=== PATIENT | male | born 1980 | race Caucasian/White ===

== ENCOUNTER 2021-07-16 20:47 | Emergency (ER) | payer BC ==
[2021-07-16] MEDS ORDERED: Sodium Chloride 0.9% 1,000 ML IV SCH (21:00)
[2021-07-16] MEDS ORDERED: Sodium Chloride 0.9% 10 ML Syringe FLUSH PRN (21:00)
[2021-07-16] MEDS ORDERED: Ondansetron 4 MG/2 ML SDV IVPUSH ONE (21:00)
[2021-07-16] MEDS ORDERED: HYDROmorphone 1 MG/ML Syringe IVPUSH ONE (21:01)
[2021-07-16] MEDS ORDERED: Ketorolac 15 MG/ML SDV IVPUSH ONE (21:01)
[2021-07-16 21:33] LABS: CHLORIDE,CL 107 mmol/L (98-107); SODIUM,NA 138 mmol/L (136-145)
[2021-07-16 21:34] LABS: ANION GAP 15.9 mmol/L (5-15)
[2021-07-16] MEDS ORDERED: Iopamidol 612 MG/ML 100 ML Bottle IVPUSH ONE (22:22)
[2021-07-16] MEDS ORDERED: Morphine 4 MG/ML Syringe IVPUSH ONE (22:37)
[2021-07-16] MEDS ORDERED: Take Home: Acetaminophen/oxyCODONE 325-5 MG, 5 Tab Pack PO ONE (23:01)
[2021-07-16] MEDS ORDERED: Tamsulosin 0.4 MG Cap.ER PO ONE (23:01)
--- NOTE | 2021-07-16 23:30 | EDM.PDOC ---
ED HPI GENERAL MEDICAL PROBLEM - General Chief Complaint: Genitourinary Problem Stated Complaint: POSSIBLE KIDNEY STONE Time Seen by Provider: 07/16/21 22:41 Source of Information: Reports: Patient History Limitations: Reports: No Limitations - History of Present Illness INITIAL COMMENTS - FREE TEXT/NARRATIVE: Pt. presents to ER with complaints of R sided abdominal and flank pain that started shortly before coming to ER. Pt. states that the discomfort is similar to what he has experienced in the past when he has had a previous kidney stone. Denies any fever or chills. No chest pain or shortness or breath. No nausea, vomiting, diarrhea. Pt. states that the discomfort radiates into his groin. He denies any hematuria. Onset: Today Onset Date: 07/17/21 Location: Reports: Generalized Associated Symptoms: Reports: Nausea/Vomiting - Related Data Allergies Allergy/AdvReac Type Severity Reaction Status Date / Time Penicillins Allergy Other Verified 07/16/21 20:59 ED ROS GENERAL - Review of Systems Review Of Systems: See Below Constitutional: Denies: Fever, Chills HEENT: Reports: No Symptoms Respiratory: Reports: No Symptoms Cardiovascular: Reports: No Symptoms Endocrine: Reports: No Symptoms GI/Abdominal: Reports: Abdominal Pain : Reports: Flank Pain. Denies: Hematuria Musculoskeletal: Reports: No Symptoms Skin: Reports: No Symptoms Neurological: Reports: No Symptoms Psychiatric: Reports: No Symptoms Hematologic/Lymphatic: Reports: No Symptoms Immunologic: Reports: No Symptoms ED EXAM, GENERAL - Physical Exam Exam: See Below Exam Limited By: No Limitations General Appearance: Alert, WD/WN, No Apparent Distress Respiratory/Chest: No Respiratory Distress, No Accessory Muscle Use, Chest Non- Tender GI/Abdominal: Soft, Non-Tender, No Distention, No Mass (Male) Exam: Deferred Rectal (Males) Exam: Deferred Back Exam: CVA Tenderness (R) Extremities: Normal Inspection, Normal Range of Motion, Non-Tender, No Pedal Edema, Normal Capillary Refill Neurological: Alert, Oriented, CN II-XII Intact, Normal Cognition, Normal Gait, Normal Reflexes, No Motor/Sensory Deficits Psychiatric: Normal Affect, Normal Mood Skin Exam: Warm, Dry, Intact, Normal Color, No Rash Lymphatic: No Adenopathy Course - Vital Signs Last Recorded V/S: Last Vital Signs Temp 35.9 C L 07/16/21 22:41 Pulse 71 07/16/21 22:41 Resp 18 07/16/21 22:41 BP 178/98 H 07/16/21 22:41 Pulse Ox 98 07/16/21 22:41 - Orders/Labs/Meds Orders: Active Orders 24 hr Category Date Time Status Abdomen Pelvis w Cont [CT] Stat Exams 07/16/21 21:29 Taken Sodium Chloride 0.9% [Normal Saline] 1,000 ml Med 07/16/21 21:00 Active IV ASDIRECTED Sodium Chloride 0.9% [Saline Flush] Med 07/16/21 21:00 Active 10 ml FLUSH ASDIRECTED PRN Peripheral IV Insertion Adult [OM.PC] Routine Oth 07/16/21 21:00 Ordered Medication Orders Sodium Chloride (Normal Saline) 1,000 mls @ 1,000 mls/hr IV ASDIRECTED IZZY Sodium Chloride (Sodium Chloride 0.9% 10 Ml Syringe) 10 ml FLUSH ASDIRECTED PRN PRN Reason: Keep Vein Open Labs: Laboratory Tests 07/16/21 07/16/21 07/16/21 Range/Units 20:57 21:13 21:13 WBC 12.3 H (4.0-10.0) x10^3/uL RBC 4.99 (4.5-6.0) x10^6/uL Hgb 14.8 (14.0-18.0) g/dL Hct 43.3 (40.0-52.0) % MCV 86.8 (78.0-93.0) fL MCH 29.7 (26.0-32.0) pg MCHC 34.2 (32.0-36.0) g/dL RDW Coeff of Kashif 13.8 (10.0-15.0) % Plt Count 231 (130-400) x10^3/uL Immature Gran % (Auto) 0.30 (0.00-0.43) % Neut % (Auto) 69.6 (50.0-80.0) % Lymph % (Auto) 18.3 L (25.0-50.0) % [place] % (Auto) 9.3 (2.0-11.0) % Eos % (Auto) 2.3 (0.0-4.0) % Baso % (Auto) 0.2 (0.2-1.2) % Neut # (Auto) 8.6 H (1.8-7.7) x10^3/uL Lymph # (Auto) 2.3 (1.0-4.8) x10^3/uL Fleming # (Auto) 1.2 H (0.0-0.8) x10^3/uL Eos # (Auto) 0.3 (0.0-0.5) x10^3/uL Baso # (Auto) 0.0 (0.0-0.2) x10^3/uL Immature Gran # (Auto) 0.04 (0.00-0.07) x10^3/uL Sodium 138 (136-145) mmol/L Potassium 3.9 (3.5-5.1) mmol/L Chloride 107 (98-107) mmol/L Carbon Dioxide 19 L (21-32) mmol/L Anion Gap 15.9 H (5-15) mmol/L BUN 16 (7-18) mg/dL Creatinine 1.0 (0.70-1.30) mg/dL Est Cr Clr Drug Dosing TNP Estimated GFR (MDRD) > 60 Glucose 162 H (70-99) mg/dL Calcium 8.5 (8.5-10.1) mg/dL Corrected Calcium 8.9 (8.5-10.1) mg/dL Phosphorus 3.5 (2.6-4.7) mg/dL Magnesium 1.9 (1.8-2.4) mg/dL Total Bilirubin 0.2 (0.2-1.0) mg/dL AST 21 (15-37) U/L ALT 41 (16-63) U/L Alkaline Phosphatase 83 (46-116) U/L C-Reactive Protein < 0.2 (<=0.9) mg/dL Total Protein 7.0 (6.4-8.2) g/dL Albumin 3.5 (3.4-5.0) g/dL Globulin 3.5 Albumin/Globulin Ratio 1.00 Urine Color Yellow (YELLOW) Urine Appearance Clear (CLEAR) Urine pH 5.5 (5.0-8.0) Ur Specific [place] >=1.030 Urine Protein Negative (NEGATIVE) mg/dL Urine Glucose (UA) Negative (NEGATIVE) mg/dL Urine Ketones Negative (NEGATIVE) mg/dL Urine Occult Blood Moderate H (NEGATIVE) Urine Nitrite Negative (NEGATIVE) Urine Bilirubin Negative (NEGATIVE) Urine Urobilinogen 0.2 (0.2) EU/dL Ur Leukocyte Esterase Negative (NEGATIVE) Urine RBC 20-30 H (NOT SEEN) /HPF Urine WBC 0-5 (NOT SEEN) /HPF Ur Squamous Epith Cells Not seen (NOT SEEN) /HPF Urine Bacteria Rare (NOT SEEN) /HPF Urine Mucus Rare H (NOT SEEN) /LPF Meds: Medications Generic Name Dose Route Start Last Admin Trade Name Freq PRN Reason Stop Dose Admin Sodium Chloride 1,000 mls @ 1,000 mls/hr 07/16/21 21:00 Normal Saline IV ASDIRECTED IZZY Sodium Chloride 10 ml 07/16/21 21:00 Sodium Chloride 0.9% 10 Ml Syringe FLUSH ASDIRECTED PRN Keep Vein Open Discontinued Medications Generic Name Dose Route Start Last Admin Trade Name Toanq PRN Reason Stop Dose Admin Hydromorphone HCl 1 mg 07/16/21 21:01 Hydromorphone 1 Mg/Ml Syringe IVPUSH 07/16/21 21:02 ONETIME ONE Iopamidol 100 ml 07/16/21 22:22 07/16/21 22:10 Iopamidol 612 Mg/Ml 100 Ml Bottle IVPUSH 07/16/21 22:23 100 ml ONETIME ONE Administration Ketorolac Tromethamine 15 mg 07/16/21 21:01 Ketorolac 15 Mg/Ml Sdv IVPUSH 07/16/21 21:02 ONETIME ONE Morphine Sulfate 4 mg 07/16/21 22:37 Morphine 4 Mg/Ml Syringe IVPUSH 07/16/21 22:38 ONETIME ONE Ondansetron HCl 4 mg 07/16/21 21:00 Ondansetron 4 Mg/2 Ml Sdv IVPUSH 07/16/21 21:01 ONETIME ONE Oxycodone/Acetaminophen 2 packet 07/16/21 23:01 Take Home: Acetaminophen/Oxycodone 325-5 Mg, 5 Tab Pack PO 07/16/21 23:02 ONETIME ONE Tamsulosin HCl 0.4 mg 07/16/21 23:01 Tamsulosin 0.4 Mg Cap.Er PO 07/16/21 23:02 ONETIME ONE - Radiology Interpretation Free Text/Narrative:: 2 mm R ureteral stone Departure - Departure Time of Disposition: 23:45 Disposition: Home, Self-Care 01 Clinical Impression: Kidney stone - Discharge Information Instructions: Acetaminophen; Hydrocodone tablets or capsules, Kidney Stones, Tamsulosin capsules Referrals: Jluis Purvis NP [Primary Care Provider] - Forms: ED Department Discharge Additional Instructions: Home to rest. [place] 10/325mg 1 every 4-6 hours as needed for pain Flomax 0.4mg Strain urine. Collect stones, bring to clinic for analysis. Recheck in clinic in 7-10 days. Return to ER if you have pain refractory to oral pain medication. Sepsis Event Note (ED) - Evaluation Sepsis Screening Result: No Definite Risk - Focused Exam Vital Signs: Vital Signs Temp Pulse Resp BP Pulse Ox 07/16/21 22:41 35.9 C L 71 18 178/98 H 98 - Problem List Review Problem List Initiated/Reviewed/Updated: Yes - My Orders Last 24 Hours: My Active Orders 07/16/21 21:00 Sodium Chloride 0.9% [Normal Saline] 1,000 ml IV ASDIRECTED Sodium Chloride 0.9% [Saline Flush] 10 ml FLUSH ASDIRECTED PRN Peripheral IV Insertion Adult [OM.PC] Routine 07/16/21 21:29 Abdomen Pelvis w Cont [CT] Stat - Assessment/Plan Last 24 Hours: My Active Orders 07/16/21 21:00 Sodium Chloride 0.9% [Normal Saline] 1,000 ml IV ASDIRECTED Sodium Chloride 0.9% [Saline Flush] 10 ml FLUSH ASDIRECTED PRN Peripheral IV Insertion Adult [OM.PC] Routine 07/16/21 21:29 Abdomen Pelvis w Cont [CT] Stat Plan: Home to rest. [place] 10/325mg 1 every 4-6 hours as needed for pain Flomax 0.4mg Strain urine. Collect stones, bring to clinic for analysis. Recheck in clinic in 7-10 days. Return to ER if you have pain refractory to oral pain medication.
--- NOTE | 2021-07-17 10:13 | CT ---
[id number] CT/CT Abdomen Pelvis W IV EXAM: CT Abdomen Pelvis W IV CLINICAL DATA: RLQ ABD PAIN/HEMATURIA, ELEVATED WBCs COMPARISON STUDY: None. FINDINGS: Lung bases are clear. 2 mm stone within the distal 3rd of the right ureter just proximal to the vesicoureteral junction. There is resulting mild right hydroureteronephrosis as well as asymmetric right perinephric fat stranding. No additional stones are identified. The left kidney is unremarkable. The spleen, pancreas, adrenal glands and gallbladder are unremarkable. The liver is mildly enlarged. No bowel obstruction or inflammation. No lymphadenopathy, free fluid, or pneumoperitoneum. Scattered changes of spondylosis the spine. No fracture or osseous lesion. IMPRESSION: 1. 2 mm stone within the distal 3rd of the right ureter just proximal to the vesicoureteral junction. There is resulting mild right hydroureteronephrosis. Mckay Rosas DO 07/17/21 1012 Thank you for allowing us to participate in the care of your patient.
== END 2021-07-16 23:30 | disposition home or self-care (01) ==
LOC: VM.ED 20:47
DX: N13.2 Hydronephrosis with renal and ureteral calculous obstruction (principal); Z88.0 Allergy status to penicillin
CPT/HCPCS: 74177; 80053; 81001; 83735; 84100; 85025; 86140; 96374; 96375; 99283; 99284-25; A9270-GY; J1170; J1885; J2270; J2405; J7030; Q9967

== ENCOUNTER 2021-07-20 14:07 | Emergency (ER) | payer BC ==
[2021-07-20] MEDS ORDERED: Sodium Chloride 0.9% 10 ML Syringe FLUSH PRN (14:28)
[2021-07-20] MEDS ORDERED: Lactated Ringers 1,000 ML IV ONE (14:33)
[2021-07-20] MEDS ORDERED: diphenhydrAMINE 50 MG/ML SDV IVPUSH ONE (14:33)
[2021-07-20] MEDS ORDERED: HYDROmorphone 0.5 MG/0.5 ML Syringe IV ONE (14:33)
[2021-07-20] MEDS ORDERED: Orphenadrine 60 MG/2 ML Inj IM STA (14:33)
--- NOTE | 2021-07-20 14:41 | EDM.PDOC ---
ED HPI GENERAL MEDICAL PROBLEM - General Chief Complaint: Flank Pain Stated Complaint: KIDNEY STONE Time Seen by Provider: 07/20/21 14:30 Source of Information: Reports: Patient History Limitations: Reports: No Limitations - History of Present Illness INITIAL COMMENTS - FREE TEXT/NARRATIVE: Patient comes emergency department today with continued complaints of right flank pain. This patient was seen on 07-16-21 with concerns of new onset of right flank pain. He was diagnosed with a small distal kidney stone and was sent home with oral pain medicine. He continues to have unrelenting right flank and right lower abdominal pain. He has subjective fever and chills. Nausea and vomiting. He cannot eat he cannot sleep. He was seen in the clinic on Saturday as he has this continued pain. He was prescribed Zofran and oxycodone although he continues to not have much for pain relief. He states that he has about a half an hour of pain relief and then his symptoms return. He has no other abdominal pain. No chest pain no shortness of breath or difficulty breathing. No dysuria hematuria or urinary frequency. No black or tarry stools. Right Flank Pain Score (Numeric/FACES): 9 - Related Data Allergies Allergy/AdvReac Type Severity Reaction Status Date / Time Penicillins Allergy Other Verified 07/20/21 14:21 Home Meds: Home Meds Ketorolac [Toradol] 10 mg PO TID PRN #12 tab 07/20/21 [Rx] Ondansetron [Zofran ODT] 4 mg PO Q8H PRN 07/20/21 [History] Orphenadrine [Norflex] 100 mg PO BID PRN #8 tab 07/20/21 [Rx] Tamsulosin HCl [Flomax] 0.4 mg PO DAILY 07/20/21 [History] lisinopriL [Lisinopril] 10 mg PO DAILY 07/20/21 [History] oxyCODONE HCl/Acetaminophen [Percocet 5-325 mg Tablet] 1 each PO Q4HR PRN 07/20/21 [History] Past Medical History Cardiovascular History: Reports: Hypertension Genitourinary History: Reports: Renal Calculus Social & Family History - Tobacco Use Tobacco Use Status *Q: Unknown Ever Used Tobacco ED ROS GENERAL - Review of Systems Review Of Systems: Comprehensive ROS is negative, except as noted in HPI. ED EXAM, GI/ABD - Physical Exam Exam: See Below Text/Narrative:: He is sitting quietly on the chair. Exam Limited By: No Limitations General Appearance: Alert, WD/WN, Mild Distress Eyes: Bilateral: EOMI Neck: Normal Inspection, Supple, Non-Tender Respiratory/Chest: No Respiratory Distress, Lungs Clear, Normal Breath Sounds, No Accessory Muscle Use, Chest Non-Tender Cardiovascular: Normal Peripheral Pulses, Regular Rate, Rhythm GI/Abdominal Exam: Normal Bowel Sounds, Soft, Non-Tender (Male) Exam: Deferred Rectal (Males) Exam: Deferred Back Exam: Normal Inspection, Full Range of Motion. No: CVA Tenderness (L), CVA Tenderness (R) Extremities: Normal Inspection, Normal Range of Motion, No Pedal Edema, Normal Capillary Refill Neurological: Alert, Oriented, Normal Cognition, No Motor/Sensory Deficits Psychiatric: Normal Affect, Normal Mood Skin Exam: Warm, Dry, Intact, Normal Color, No Rash Course - Vital Signs Last Recorded V/S: Last Vital Signs Temp 97.6 F 07/20/21 14:13 Pulse 89 07/20/21 14:13 Resp 16 07/20/21 14:13 BP 137/83 07/20/21 14:13 Pulse Ox 96 07/20/21 14:13 - Orders/Labs/Meds Orders: Active Orders 24 hr Category Date Time Status Sodium Chloride 0.9% [Saline Flush] Med 07/20/21 14:28 Active 10 ml FLUSH ASDIRECTED PRN Peripheral IV Insertion Adult [OM.PC] Stat Oth 07/20/21 14:28 Ordered Medication Orders Sodium Chloride (Sodium Chloride 0.9% 10 Ml Syringe) 10 ml FLUSH ASDIRECTED PRN PRN Reason: Keep Vein Open Labs: Laboratory Tests 07/20/21 07/20/21 07/20/21 Range/Units 14:36 14:40 14:40 WBC 16.6 H (4.0-10.0) x10^3/uL RBC 4.93 (4.5-6.0) x10^6/uL Hgb 14.5 (14.0-18.0) g/dL Hct 42.5 (40.0-52.0) % MCV 86.2 (78.0-93.0) fL MCH 29.4 (26.0-32.0) pg MCHC 34.1 (32.0-36.0) g/dL RDW Coeff of Kashif 13.0 (10.0-15.0) % Plt Count 250 (130-400) x10^3/uL Immature Gran % (Auto) 0.40 (0.00-0.43) % Neut % (Auto) 77.7 (50.0-80.0) % Lymph % (Auto) 9.0 L (25.0-50.0) % Dare % (Auto) 11.4 H (2.0-11.0) % Eos % (Auto) 1.2 (0.0-4.0) % Baso % (Auto) 0.3 (0.2-1.2) % Neut # (Auto) 12.9 H (1.8-7.7) x10^3/uL Lymph # (Auto) 1.5 (1.0-4.8) x10^3/uL Dare # (Auto) 1.9 H (0.0-0.8) x10^3/uL Eos # (Auto) 0.2 (0.0-0.5) x10^3/uL Baso # (Auto) 0.1 (0.0-0.2) x10^3/uL Immature Gran # (Auto) 0.07 (0.00-0.07) x10^3/uL Sodium 132 L (136-145) mmol/L Potassium 4.1 (3.5-5.1) mmol/L Chloride 97 L (98-107) mmol/L Carbon Dioxide 29 D (21-32) mmol/L Anion Gap 10.1 (5-15) mmol/L BUN 13 (7-18) mg/dL Creatinine 1.3 (0.70-1.30) mg/dL Est Cr Clr Drug Dosing TNP Estimated GFR (MDRD) > 60 Glucose 97 (70-99) mg/dL Lactic Acid (0.4-2.0) mmol/L Calcium 8.7 (8.5-10.1) mg/dL Corrected Calcium 9.2 (8.5-10.1) mg/dL Total Bilirubin 0.7 (0.2-1.0) mg/dL AST 14 L (15-37) U/L ALT 32 (16-63) U/L Alkaline Phosphatase 69 (46-116) U/L C-Reactive Protein 15.9 H (<=0.9) mg/dL Total Protein 7.8 (6.4-8.2) g/dL Albumin 3.4 (3.4-5.0) g/dL Globulin 4.4 Albumin/Globulin Ratio 0.77 Urine Color Yellow (YELLOW) Urine Appearance Clear (CLEAR) Urine pH 6.0 (5.0-8.0) Ur Specific [place] 1.010 Urine Protein Negative (NEGATIVE) mg/dL Urine Glucose (UA) Negative (NEGATIVE) mg/dL Urine Ketones Negative (NEGATIVE) mg/dL Urine Occult Blood Trace-intact H (NEGATIVE) Urine Nitrite Negative (NEGATIVE) Urine Bilirubin Negative (NEGATIVE) Urine Urobilinogen 0.2 (0.2) EU/dL Ur Leukocyte Esterase Negative (NEGATIVE) Urine RBC 0-5 (NOT SEEN) /HPF Urine WBC 0-5 (NOT SEEN) /HPF Ur Squamous Epith Cells Not seen (NOT SEEN) /HPF Urine Bacteria Rare (NOT SEEN) /HPF Urine Mucus Not seen (NOT SEEN) /LPF 07/20/21 Range/Units 14:40 WBC (4.0-10.0) x10^3/uL RBC (4.5-6.0) x10^6/uL Hgb (14.0-18.0) g/dL Hct (40.0-52.0) % MCV (78.0-93.0) fL MCH (26.0-32.0) pg MCHC (32.0-36.0) g/dL RDW Coeff of Kashif (10.0-15.0) % Plt Count (130-400) x10^3/uL Immature Gran % (Auto) (0.00-0.43) % Neut % (Auto) (50.0-80.0) % Lymph % (Auto) (25.0-50.0) % Dare % (Auto) (2.0-11.0) % Eos % (Auto) (0.0-4.0) % Baso % (Auto) (0.2-1.2) % Neut # (Auto) (1.8-7.7) x10^3/uL Lymph # (Auto) (1.0-4.8) x10^3/uL Dare # (Auto) (0.0-0.8) x10^3/uL Eos # (Auto) (0.0-0.5) x10^3/uL Baso # (Auto) (0.0-0.2) x10^3/uL Immature Gran # (Auto) (0.00-0.07) x10^3/uL Sodium (136-145) mmol/L Potassium (3.5-5.1) mmol/L Chloride (98-107) mmol/L Carbon Dioxide (21-32) mmol/L Anion Gap (5-15) mmol/L BUN (7-18) mg/dL Creatinine (0.70-1.30) mg/dL Est Cr Clr Drug Dosing Estimated GFR (MDRD) Glucose (70-99) mg/dL Lactic Acid 1.1 (0.4-2.0) mmol/L Calcium (8.5-10.1) mg/dL Corrected Calcium (8.5-10.1) mg/dL Total Bilirubin (0.2-1.0) mg/dL AST (15-37) U/L ALT (16-63) U/L Alkaline Phosphatase (46-116) U/L C-Reactive Protein (<=0.9) mg/dL Total Protein (6.4-8.2) g/dL Albumin (3.4-5.0) g/dL Globulin Albumin/Globulin Ratio Urine Color (YELLOW) Urine Appearance (CLEAR) Urine pH (5.0-8.0) Ur Specific [place] Urine Protein (NEGATIVE) mg/dL Urine Glucose (UA) (NEGATIVE) mg/dL Urine Ketones (NEGATIVE) mg/dL Urine Occult Blood (NEGATIVE) Urine Nitrite (NEGATIVE) Urine Bilirubin (NEGATIVE) Urine Urobilinogen (0.2) EU/dL Ur Leukocyte Esterase (NEGATIVE) Urine RBC (NOT SEEN) /HPF Urine WBC (NOT SEEN) /HPF Ur Squamous Epith Cells (NOT SEEN) /HPF Urine Bacteria (NOT SEEN) /HPF Urine Mucus (NOT SEEN) /LPF Meds: Medications Generic Name Dose Route Start Last Admin Trade Name Freq PRN Reason Stop Dose Admin Sodium Chloride 10 ml 07/20/21 14:28 Sodium Chloride 0.9% 10 Ml Syringe FLUSH ASDIRECTED PRN Keep Vein Open Discontinued Medications Generic Name Dose Route Start Last Admin Trade Name Freq PRN Reason Stop Dose Admin Diphenhydramine HCl 25 mg 07/20/21 14:33 07/20/21 14:56 Diphenhydramine 50 Mg/Ml Sdv IVPUSH 07/20/21 14:34 25 mg ONETIME ONE Administration Hydromorphone HCl 0.5 mg 07/20/21 14:33 07/20/21 14:58 Hydromorphone 0.5 Mg/0.5 Ml Syringe IV 07/20/21 14:34 0.5 mg ONETIME ONE Administration Lactated Ringer's 1,000 mls @ 999 mls/hr 07/20/21 14:33 07/20/21 14:55 Ringers, Lactated IV 07/20/21 15:33 999 mls/hr ONETIME ONE Administration Ketorolac Tromethamine 30 mg 07/20/21 15:30 07/20/21 15:38 Ketorolac 30 Mg/Ml Sdv IVPUSH 07/20/21 15:31 30 mg ONETIME ONE Administration Orphenadrine Citrate 60 mg 07/20/21 14:33 07/20/21 14:58 Orphenadrine 60 Mg/2 Ml Inj IM 07/20/21 14:34 60 mg NOW STA Administration - Radiology Interpretation Free Text/Narrative:: CT abdomen pelvis without contrast showed a 2 mm distal right ureteral calculus has progressed to the level of the UVJ. Mild to moderate associated hydronephrosis has increased. - Re-Assessments/Exams Free Text/Narrative Re-Assessment/Exam: 07/20/21 14:41 IV was established labs were drawn. Benadryl 25 mg IV push. Dilaudid 0.5 mg IV push. Norflex 60 mg IV push. LR 1 L wide open. I did review his his CT scan that was completed on Saturday without contrast that showed a very small 2 mm stone at the distal urethra at the UVJ site. Urine was noninfectious. Mild elevation of his white blood cell count the rest of the CT scan was normal. 07/20/21 16:53 Patient did not have much pain relief with the above therapy. CT today shows improvement of the position of the 2 mm distal ureteral stone down to the UVJ. Mild increase of the hydronephrosis. His white blood cell count is mildly elevated to 16.6. Although he has a normal differential. Lactic acid is normal. CRP is elevated. He has had no fevers. I am unconcerned for infection at this time and this is most likely stress response. His BMP is rather unremarkable. His urinalysis shows trace amount of blood. The patient was given 30 mg of Toradol IV push with almost complete resolution of the pain. He relates that this is the best his pain is felt since his kidney stone started. He has not taken any NSAIDs since the onset of his kidney stone. I did offer to the patient a urology consult at this time for which she feels that he does not need as his pain is much improved and with the improvement of the stone this will most likely pass on its own and I agree with the patient. I did offer admission for observation for pain management as he has been struggling for a couple of days but his pain is much improved after the ibuprofen and he would like to go home. If at all over the weekend he has much worsening of his pain he should return to the emergency department. If he continues to have symptoms on Saturday have him follow-up with primary care for urology referral in consult. He is comfortable with this plan his questions are answered. Departure - Departure Time of Disposition: 16:47 Disposition: Home, Self-Care 01 Clinical Impression: Renal colic on right side, Kidney stone on right side - Discharge Information Prescriptions: Orphenadrine [Norflex] 100 mg PO BID PRN #8 tab PRN Reason: Spasms Ketorolac [Toradol] 10 mg PO TID PRN #12 tab PRN Reason: Pain Instructions: Kidney Stones, [id number] Referrals: Jluis Purvis NP [Primary Care Provider] - Forms: ED Department Discharge Additional Instructions: Continue previous therapies of increased fluids. Zofran and Flomax and Oxycodone. Continue to push fluids and strain your urine. Start Ketorolac 1 tablet three times a day as needed for pain. DO NOT TAKE ANY other NSAIDs with this medication. Ibuprofen Naproxen Motrin Etc. RX sent to [facility]. Also Orphenadrine, 1 tablet twice daily as needed for pain spasms as well. Caution sedation. Rx sent to [facility]. For your bowels Miralax OTC, 2 capfuls in a large glass of water daily until easy smooth bowel movement. Return to the ED if new or worsening symptoms. Follow up with PCP on saturday if pain continues. Consider urology consult at that time for possible removal. Sepsis Event Note (ED) - Focused Exam Vital Signs: Vital Signs Temp Pulse Resp BP Pulse Ox 07/20/21 14:13 97.6 F 89 16 137/83 96 - My Orders Last 24 Hours: My Active Orders 07/20/21 14:28 Sodium Chloride 0.9% [Saline Flush] 10 ml FLUSH ASDIRECTED PRN Peripheral IV Insertion Adult [OM.PC] Stat - Assessment/Plan Last 24 Hours: My Active Orders 07/20/21 14:28 Sodium Chloride 0.9% [Saline Flush] 10 ml FLUSH ASDIRECTED PRN Peripheral IV Insertion Adult [OM.PC] Stat
[2021-07-20 15:19] LABS: ANION GAP 10.1 mmol/L (5-15); CHLORIDE,CL 97 mmol/L (98-107); SODIUM,NA 132 mmol/L (136-145)
[2021-07-20] MEDS ORDERED: Ketorolac 30 MG/ML SDV IVPUSH ONE (15:30)
--- NOTE | 2021-07-20 15:51 | CT ---
[id number] CT/CT Abdomen Pelvis WO IV EXAM: ABDOMEN AND PELVIS CT WITHOUT CONTRAST INDICATION: CONTINUED FLANK PAIN. COMPARISON: July 16, 2021. DISCUSSION: A 2 mm calculus in the distal right ureter has moved down the ureter and is now at the ureterovesicular junction. There is increased mild to moderate hydronephrosis and residual contrast in the collecting system from the previous CT. No other renal calculi are identified. No left-sided collecting system dilation. Scattered diverticula of the colon without evidence of diverticulitis. Mild hepatomegaly. Small fat-containing left inguinal hernia. Unenhanced images of the gallbladder, pancreas, spleen, adrenal glands, small bowel, and the appendix are unremarkable. No adenopathy, free air free fluid. IMPRESSION: 1. A 2 mm distal right ureteral calculus has progressed to the level of the ureterovesicular junction. Mild to moderate associated hydronephrosis has increased. Vasile Perez MD 07/20/21 2214 Thank you for allowing us to participate in the care of your patient.
== END 2021-07-20 17:02 | disposition home or self-care (01) ==
LOC: VM.ED 14:07
DX: N13.2 Hydronephrosis with renal and ureteral calculous obstruction (principal); I10 Essential (primary) hypertension; Z88.0 Allergy status to penicillin; Z79.899 Other long term (current) drug therapy
CPT/HCPCS: 74176; 80053; 81001; 83605; 85025; 86140; 96372; 96374; 96375; 99284; 99284-25; J1170; J1200; J1885; J2360; J7120